=== PATIENT | male | born 1980 | race Caucasian/White ===

== ENCOUNTER 2020-01-31 00:17 | Emergency (ER) | payer BC, MEDICAID ==
--- NOTE | 2020-01-31 00:39 | EDM.PDOC ---
ED HPI GENERAL MEDICAL PROBLEM - General Chief Complaint: Cardiovascular Problem Stated Complaint: HBP Time Seen by Provider: 01/31/20 00:27 Source of Information: Reports: Patient History Limitations: Reports: No Limitations - History of Present Illness INITIAL COMMENTS - FREE TEXT/NARRATIVE: Is a 39-year-old male presents today for elevated blood pressure. Patient states that his PMD has been monitoring his blood pressure for the past few weeks determine if he would need medication. Patient bought a device that is automatic at home that told him that if he had elevated blood pressure that he should confirm it with a manual cuff. Here denies any chest pain vision changes or urinary symptoms. Headache Pain Score (Numeric/FACES): 2 - Related Data Allergies Allergy/AdvReac Type Severity Reaction Status Date / Time No Known Allergies Allergy Verified 01/31/20 00:37 Home Meds: Home Meds . [No Known Home Meds] 01/31/20 [History] Social & Family History - Tobacco Use Tobacco Use Status *Q: Never Tobacco User Second Hand Smoke Exposure: No - Recreational Drug Use Recreational Drug Use: No ED ROS GENERAL - Review of Systems Review Of Systems: See Below Constitutional: Reports: No Symptoms HEENT: Reports: No Symptoms Respiratory: Reports: No Symptoms Cardiovascular: Reports: No Symptoms Endocrine: Reports: No Symptoms GI/Abdominal: Reports: No Symptoms : Reports: No Symptoms Musculoskeletal: Reports: No Symptoms Skin: Reports: No Symptoms Neurological: Reports: No Symptoms Psychiatric: Reports: No Symptoms Hematologic/Lymphatic: Reports: No Symptoms Immunologic: Reports: No Symptoms ED EXAM, GENERAL - Physical Exam Exam: See Below Exam Limited By: No Limitations General Appearance: Alert, No Apparent Distress Eye Exam: Bilateral Eye: EOMI, PERRL Head: Atraumatic Respiratory/Chest: No Respiratory Distress, Lungs Clear Cardiovascular: Normal Peripheral Pulses, Regular Rate, Rhythm GI/Abdominal: Normal Bowel Sounds, Soft, Non-Tender Back Exam: Full Range of Motion Extremities: Normal Range of Motion Neurological: Alert, Oriented, CN II-XII Intact, Normal Cognition, Normal Gait #1 Interpretation EKG Date: 01/31/20 Time: 00:50 Rhythm: NSR Rate (Beats/Min): 83 ST-T: Normal Course - Vital Signs Last Recorded V/S: Last Vital Signs Temp 98.6 F 01/31/20 00:28 Pulse 90 01/31/20 00:28 Resp 18 01/31/20 00:28 BP 142/80 H 01/31/20 00:40 Pulse Ox 97 01/31/20 00:28 - Orders/Labs/Meds Orders: Active Orders 24 hr Category Date Time Status EKG Documentation Completion [RC] STAT Care 01/31/20 00:40 Active BASIC METABOLIC PANEL,BMP [CHEM] Stat Lab 01/31/20 00:55 Received TROPONIN I [CHEM] Stat Lab 01/31/20 00:55 Received Labs: Laboratory Tests 01/31/20 Range/Units 00:55 WBC 10.69 (4.0-11.0) K/uL RBC 5.57 (4.50-5.90) M/uL Hgb 16.8 (13.0-17.0) g/dL Hct 47.3 (38.0-50.0) % MCV 84.9 (80.0-98.0) fL MCH 30.2 (27.0-32.0) pg MCHC 35.5 (31.0-37.0) g/dL RDW Std Deviation 40.7 (28.0-62.0) fl RDW Coeff of Jesi 13 (11.0-15.0) % Plt Count 185 (150-400) K/uL MPV 8.50 (7.40-12.00) fL Neut % (Auto) 68.4 (48.0-80.0) % Lymph % (Auto) 20.8 (16.0-40.0) % [place] % (Auto) 9.2 (0.0-15.0) % Eos % (Auto) 1.3 (0.0-7.0) % Baso % (Auto) 0.3 (0.0-1.5) % Neut # (Auto) 7.3 H (1.4-5.7) K/uL Lymph # (Auto) 2.2 (0.6-2.4) K/uL [place] # (Auto) 1.0 H (0.0-0.8) K/uL Eos # (Auto) 0.1 (0.0-0.7) K/uL Baso # (Auto) 0.0 (0.0-0.1) K/uL - Re-Assessments/Exams Free Text/Narrative Re-Assessment/Exam: 01/31/20 01:23 Patient walked out because yes to go to work shortly. [facility] is manual blood pressure 140 he was satisfied. Patient labs were still pending. Departure - Departure Time of Disposition: 01:23 Disposition: Eloped 07 Condition: Good Clinical Impression: Asymptomatic hypertension Referrals: PCP,None [Primary Care Provider] - Forms: ED Department Discharge Sepsis Event Note (ED) - Evaluation Sepsis Screening Result: No Definite Risk - Focused Exam Vital Signs: Vital Signs Temp Pulse Resp BP Pulse Ox 01/31/20 00:40 142/80 H 01/31/20 00:28 98.6 F 90 18 173/104 H 97 - My Orders Last 24 Hours: My Active Orders 01/31/20 00:40 EKG Documentation Completion [RC] STAT 01/31/20 00:55 BASIC METABOLIC PANEL,BMP [CHEM] Stat TROPONIN I [CHEM] Stat - Assessment/Plan Last 24 Hours: My Active Orders 01/31/20 00:40 EKG Documentation Completion [RC] STAT 01/31/20 00:55 BASIC METABOLIC PANEL,BMP [CHEM] Stat TROPONIN I [CHEM] Stat Plan: Patient is a 39-year-old male presents today for elevated blood pressure. Patient has asymptomatic hypertension does not have any symptoms. Patient is scheduled see his PMD this week and we will defer to see if patient's PMD would start the patient on any blood pressure medication.
[2020-01-31 01:39] LABS: BLOOD UREA NITROGEN,BUN 17 mg/dL (7.0-18.0); CARBON DIOXIDE,CO2 24.1 mmol/L (21.0-32.0); CHLORIDE,CL 103 mmol/L (98-107); GLUCOSE RANDOM 204 mg/dL (74-106); POTASSIUM,K 3.9 mmol/L (3.5-5.1); SODIUM,NA 137 mmol/L (136-148)
== END 2020-01-31 01:20 | disposition left against medical advice (07) ==
LOC: MW.ED 00:17
DX: I10 Essential (primary) hypertension (principal)
CPT/HCPCS: 36415; 80048; 84484; 85025; 93005; 93010; 99282; 99283-25